=== PATIENT | male | born 1955 | race Caucasian/White ===

== ENCOUNTER 2020-09-24 10:58 | Emergency (ER) | payer SELFPAY ==
[2020-09-24] MEDS ORDERED: IBUPROFEN 400 MG TAB ONE (14:03)
[2020-09-24] MEDS ORDERED: ACETAMINOPHEN 325 MG TABLET ONE (14:03)
--- NOTE | 2020-09-24 14:30 | EDPHYS ---
Physician Documentation [facility] Name: Micki Renteria Jr Age: 65 yrs Sex: Male : 1955 Arrival Date: 09/24/2020 Time: 11:01 Bed 13 Private MD: ED Physician Finn Jewell HPI: 09/24 13:37 This 65 yrs old Male presents to ER via Ambulatory with complaints of Wrist cp Pain - Swelling. 13:37 The patient or guardian reports pain, swelling, tenderness. The complaints affect the cp left wrist diffusely. Context: resulted from an unknown cause. Onset: The symptoms/episode began/occurred 3 day(s) ago. Modifying factors: the symptoms are aggravated by movement. Associated signs and symptoms: Pertinent negatives: cyanosis distally, decreased sensation distally. Historical: - Allergies: 11:45 No Known Allergies; sv - Immunization history:: Adult Immunizations up to date, Client reports having NOT received the Covid vaccine. Flu vaccine is not up to date. - Social history:: Smoking status: Patient reports the use of cigarette tobacco products, smokes one pack cigarettes per day. ROS: 13:38 Constitutional: Negative for body aches, chills, fever, poor PO intake. cp 13:38 Cardiovascular: Negative for chest pain. 13:38 Respiratory: Negative for cough, shortness of breath, wheezing. 13:38 Abdomen/GI: Negative for abdominal pain, nausea, vomiting, and diarrhea. 13:38 MS/extremity: Positive for pain, swelling, tenderness, of the left wrist, Negative for injury or acute deformity, decreased range of motion, paresthesias. 13:38 All other systems are negative. Exam: 13:39 Head/Face: Normocephalic, atraumatic. cp 13:39 Constitutional: The patient appears in no acute distress, alert, awake, non-toxic, well developed, well nourished. 13:39 Cardiovascular: Rate: normal. 13:39 Respiratory: the patient does not display signs of respiratory distress, Respirations: normal. 13:39 Musculoskeletal/extremity: Joints: the left wrist displays pain at rest, painful range of motion, swelling, tenderness, skin warm and dry. Vital Signs: 11:46 BP 113 / 85; Pulse 85; Resp 16; Temp 97.1(TE); Pulse Ox 100% ; Weight 68.04 kg; Height sv 5 ft. 8 in. (172.72 cm); Pain 9/10; 15:14 BP 112 / 84; Pulse 87; Resp 16; Pulse Ox 97% on R/A; zb 11:46 Body Mass Index 22.81 (68.04 kg, 172.72 cm) sv Procedures: 15:15 Splinting: Splint applied to left wrist using Orthoglass splint, thumb spica type. cp applied by tech. Examined by me, post splint application: neurovascular intact, Patient tolerated well. MDM: 12:59 Patient medically screened. kb 14:26 Test interpretation: by ED physician or midlevel provider: xrays of left wrist negative cp for acute fracture. 14:30 Patient medically screened. cp 14:35 Data reviewed: vital signs, nurses notes, radiologic studies, plain films. cp 14:35 Differential diagnosis: dislocation, closed fracture, contusion, tendonitis. cp Counseling: I had a detailed discussion with the patient and/or guardian regarding: the historical points, exam findings, and any diagnostic results supporting the discharge/admit diagnosis, radiology results, the need for outpatient follow up, for definitive care, a hand specialist, to return to the emergency department if symptoms worsen or persist or if there are any questions or concerns that arise at home. 09/24 13:36 Order name: XRAY Wrist LEFT 3 view; Complete Time: 14:33 cp 09/24 14:27 Order name: Wrist Splint; Complete Time: 15:06 cp 09/24 15:10 Order name: Thumb Spica Splint; Complete Time: 15:10 mh5 Administered Medications: 13:47 Drug: Ibuprofen 800 mg Route: PO; zb 14:49 Follow up: Response: No adverse reaction zb 13:47 Drug: Tylenol 650 mg Route: PO; zb 14:49 Follow up: Response: No adverse reaction; Marked relief of symptoms zb Disposition: 15:20 Chart complete. 09/25 08:11 Co-signature as Attending Physician, Finn Jewell MD I agree with the assessment and kdr plan of care. Disposition: 09/24/20 14:30 Discharged to Home. Impression: Fracture of navicular [scaphoid] bone of wrist - left. - Condition is Stable. - Discharge Instructions: Scaphoid Fracture. - Prescriptions for Ibuprofen 800 mg Oral Tablet - take 1 tablet by ORAL route every 8 hours As needed take with food; 30 tablet. Tramadol 50 mg Oral Tablet - take 1 tablet by ORAL route every 8 hours as needed; 12 tablet. - Medication Reconciliation Form, Thank You Letter, Antibiotic Education, Prescription Opioid Use form. - Follow up: Davie Figueroa MD; When: 2 - 3 days; Reason: Recheck today's complaints. - Problem is new. - Symptoms have improved. Signatures: Dispatcher [employer] EDMS Judith Sutton FNP-C TICKET COUNTER-CkJen Ward, RN RN sv Finn Jewell MD MD kdr Page, Corey, PA PA cp Anai Wing [facility] Kirti Donato RN RN zb Corrections: (The following items were deleted from the chart) 09/24 14:40 14:30 09/24/2020 14:30 Discharged to Home. Impression: Pain in left wrist. Condition is cp Stable. Forms are Medication Reconciliation Form, Thank You Letter, Antibiotic Education, Prescription Opioid Use. Follow up: Private Physician; When: 2 - 3 days; Reason: Worsening of condition. Problem is new. Symptoms have improved. cp 14:49 14:40 09/24/2020 14:30 Discharged to Home. Impression: Fracture of navicular [scaphoid] cp bone of wrist - left. Condition is Stable. Discharge Instructions: Wrist Pain. Prescriptions for Medrol (Chele) 4 mg Oral Tablets, Dose Pack - take 1 tablet by ORAL route as directed - follow package instructions; 1 packet. and Forms are Medication Reconciliation Form, Thank You Letter, Antibiotic Education, Prescription Opioid Use. Follow up: Private Physician; When: 2 - 3 days; Reason: Worsening of condition. Problem is new. Symptoms have improved. cp 15:14 14:49 09/24/2020 14:30 Discharged to Home. Impression: Fracture of navicular [scaphoid] zb bone of wrist - left. Condition is Stable. Discharge Instructions: Scaphoid Fracture. Prescriptions for Ibuprofen 800 mg Oral Tablet - take 1 tablet by ORAL route every 8 hours As needed take with food; 30 tablet, Tramadol 50 mg Oral Tablet - take 1 tablet by ORAL route every 8 hours as needed; 12 tablet. and Forms are Medication Reconciliation Form, Thank You Letter, Antibiotic Education, Prescription Opioid Use. Follow up: Davie Figueroa; When: 2 - 3 days; Reason: Recheck today's complaints. Problem is new. Symptoms have improved. cp
--- NOTE | 2020-09-24 14:30 | ER ---
Nurse's Notes [facility] Name: Micki Renteria Jr Age: 65 yrs Sex: Male : 1955 Arrival Date: 09/24/2020 Time: 11:01 Bed 13 Private MD: Diagnosis: Fracture of navicular [scaphoid] bone of wrist-left Presentation: 09/24 11:45 Chief complaint: Patient states: left wrist pain and swelling x 3 days. Denies injury. sv Coronavirus screen: Client denies travel out of the [place] in the last 14 days. At this time, the client does not indicate any symptoms associated with coronavirus-19. Ebola Screen: No symptoms or risks identified at this time. Risk Assessment: Do you want to hurt yourself or someone else? Patient reports no desire to harm self or others. Onset of symptoms was September 2020. 11:45 Method Of Arrival: Ambulatory sv 11:45 Acuity: GAMAL 4 sv 11:46 Initial Sepsis Screen: Does the patient meet any 2 criteria? No. Patient's initial sv sepsis screen is negative. Does the patient have a suspected source of infection? No. Patient's initial sepsis screen is negative. Triage Assessment: 11:47 General: Appears in no apparent distress. uncomfortable, Behavior is calm, cooperative, sv appropriate for age. Pain: Complains of pain in left wrist/hand. Neuro: Level of Consciousness is awake, alert, obeys commands, Oriented to person, place, time, situation, Gait is steady. Respiratory: Respiratory effort is even, unlabored. 11:47 Musculoskeletal: Swelling present in left wrist and left hand. sv Historical: - Allergies: 11:45 No Known Allergies; sv - Immunization history:: Adult Immunizations up to date, Client reports having NOT received the Covid vaccine. Flu vaccine is not up to date. - Social history:: Smoking status: Patient reports the use of cigarette tobacco products, smokes one pack cigarettes per day. Screenin:50 Abuse screen: Denies threats or abuse. Denies injuries from another. Nutritional zb screening: No deficits noted. Tuberculosis screening: No symptoms or risk factors identified. 14:52 Fall Risk None identified. zb Assessment: 14:50 General: Appears in no apparent distress. comfortable, Behavior is calm, cooperative, zb appropriate for age. Pain: Complains of pain in left arm and left hand and left wrist. Neuro: Level of Consciousness is awake, alert, obeys commands, Oriented to person, place, time, situation. Cardiovascular: Capillary refill < 3 seconds Patient's skin is warm and dry. Respiratory: Airway is patent Respiratory effort is even, unlabored, Respiratory pattern is regular, symmetrical. GI: No signs and/or symptoms were reported involving the gastrointestinal system. : No signs and/or symptoms were reported regarding the genitourinary system. EENT: No signs and/or symptoms were reported regarding the EENT system. Derm: Skin is intact, is healthy with good turgor, Skin is dry, Skin is normal, Bruising that is bright red. Musculoskeletal: Range of motion: limited in left wrist Swelling present in left wrist. 15:00 Reassessment: ECP at bedside discussing care with patient. up ad [place] gait steady and zb even. 15:12 Reassessment: Patient appears in no apparent distress at this time. Patient and/or zb family updated on plan of care and expected duration. Pain level reassessed. Patient is alert, oriented x 3, equal unlabored respirations, skin warm/dry/pink. patient states that he is ready to go. Ortho glass applied. Vital Signs: 11:46 BP 113 / 85; Pulse 85; Resp 16; Temp 97.1(TE); Pulse Ox 100% ; Weight 68.04 kg; Height sv 5 ft. 8 in. (172.72 cm); Pain 9/10; 15:14 BP 112 / 84; Pulse 87; Resp 16; Pulse Ox 97% on R/A; zb 11:46 Body Mass Index 22.81 (68.04 kg, 172.72 cm) sv ED Course: 11:01 Patient arrived in ED. ds1 11:45 Triage completed. sv 11:45 Arm band placed on. sv 12:06 Judith Sutton FNP-C is PHCP. kb 12:06 Finn Jewell MD is Attending Physician. kb 13:29 Juno Butler PA is PHCP. cp 13:29 Finn Jewell MD is Attending Physician. cp 13:47 Kirti Donato, JACLYN is Primary Nurse. zb 14:24 XRAY Wrist LEFT 3 view In Process Unspecified. EDMS 14:49 Horndeski, Davie, MD is Referral Physician. cp 14:50 Patient has correct armband on for positive identification. Bed in low position. Call zb light in reach. Side rails up X 1. Pulse ox on. NIBP on. Door closed. Noise minimized. 14:50 No provider procedures requiring assistance completed. Patient did not have IV access zb during this emergency room visit. 15:08 Orthoglass splint: Thumb spica splint applied on left forearm. mh5 Administered Medications: 13:47 Drug: Ibuprofen 800 mg Route: PO; zb 14:49 Follow up: Response: No adverse reaction zb 13:47 Drug: Tylenol 650 mg Route: PO; zb 14:49 Follow up: Response: No adverse reaction; Marked relief of symptoms zb Outcome: 13:09 Condition: Not in lobby when called to ER room for physician eval. ll1 13:10 Condition: Not in lobby when called for physician eval. ll1 14:30 Discharge ordered by MD. cp 15:14 Discharged to home ambulatory. zb 15:14 Discharge instructions given to patient, Instructed on discharge instructions, follow up and referral plans. medication usage, Demonstrated understanding of instructions, follow-up care, medications, Prescriptions given X 2. 15:14 Patient left the ED. zb Signatures: Dispatcher [employer] EDMS Judith Sutton, SHAWNA ROBERTP-Jen Segovia, RN RN Asmita Valenzuela Corey, PA PA cp Martinez, Maria [facility] Jacob Scanlon RN RN 1 Kirti Donato RN RN zb Corrections: (The following items were deleted from the chart) 11:48 11:46 Pulse 85bpm; Resp 16bpm; Pulse Ox 100%; Temp 97.1F Temporal; 68.04 kg; Height 5 sv ft. 8 in.; BMI: 22.8; Pain 9/10; sv
--- NOTE | 2020-09-24 14:32 | RAD REPORT ---
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 There is a fracture of the scaphoid present. The fracture margins are somewhat sclerotic likely indicating that this is chronic fracture. Moderate s oft tissue swelling is seen along the dorsum of the wrist.
[2020-09-24 15:18] VITALS: TEMP 97.1
[2020-09-24 15:19] VITALS: BP 112/84; O2SAT 97
== END 2020-09-24 15:14 | disposition home or self-care (01) ==
LOC: ER 10:58
PROC: 2W3DX1Z Immobilization of Left Lower Arm using Splint (ICD-10-PCS; principal; 2020-09-24)
DX: S62.002A Unspecified fracture of navicular [scaphoid] bone of left wrist, initial encounter for closed fracture (principal); F17.210 Nicotine dependence, cigarettes, uncomplicated
CPT/HCPCS: 99284